=== PATIENT | male | born 2000 | race Two or more races ===

== ENCOUNTER 2020-11-18 13:45 | Emergency (ER) | payer OTHER ==
[~2020-11-18] VITALS: Ht 175.3 cm; Wt 80.3 kg
[2020-11-18] MEDS ORDERED: MECLIZINE HCL25 MG PO (18:16)
[2020-11-18] MEDS ORDERED: MELATONIN10 M2 PO (18:20)
== END 2020-11-18 18:31 | disposition home or self-care (01) ==
LOC: ER 13:45
DX: R42 Dizziness and giddiness (principal)

== ENCOUNTER 2022-07-01 15:22 | Emergency (ER) | payer OTHER ==
[~2022-07-01] VITALS: Ht 175.3 cm; Wt 78.0 kg
[~2022-07-01 15:22] MED LIST: MECLIZINE HCL25 MG PO; MELATONIN10 M2 PO
== END 2022-07-01 17:50 | disposition home or self-care (01) ==
LOC: ER 15:22
DX: R42 Dizziness and giddiness (principal); Z91.013 Allergy to seafood